=== PATIENT | female | born 1995 | race African-American/Black ===

== ENCOUNTER 2017-03-05 13:19 | Emergency (ER) | payer OTHER, MEDICAID ==
[2017-03-05 13:35] VITALS: BP 137/90; PULSE 102; RESP 18; TEMP 98.1; O2SAT 96
--- NOTE | 2017-03-05 15:03 | EDPHY ---
H & P Time Seen by Provider: 03/05/17 14:44 HPI/ROS: CHIEF COMPLAINT: Possible STD HISTORY OF PRESENT ILLNESS: 21-year-old female presents to the emergency department with concerns about possible sexually transmitted infection. Her current partner tested positive for gonorrhea and Chlamydia and she is here for treatment. She does complain of some vaginal discharge. She also complains of pain with urination more so when the urine hits her skin. Her last menstrual period was 2 weeks ago and she denies . She is sexually active and does not use any form of protection. She has 3 children. she denies back pain. ROS: Denies abdominal pain, back pain, fever, chills Past Medical/Surgical History: negative Social History: single Smoking Status: Current every day smoker Physical Exam: On examination the patient is in no apparent distress. She has no pain with palpation in her abdomen. No CVA tenderness bilaterally. She has ulcerative lesion noted to the hard palate as well as small ulcerative lesions to the lateral aspect of her left tongue. She is talking in full sentences. Neck is supple without lymphadenopathy. Pelvic exam reveals normal external genitalia with numerous ulcerative lesions full to the labia majora and labia minora. They appear to be consistent with genital herpes. Speculum examination not performed. Constitutional: Initial Vital Signs Temperature (C) 36.7 C 03/05/17 13:33 Heart Rate 102 H 03/05/17 13:33 Respiratory Rate 18 03/05/17 13:33 Blood Pressure 137/90 H 03/05/17 13:33 O2 Sat (%) 96 03/05/17 13:33 O2 Delivery Mode Room Air Allergies/Adverse Reactions: No Known Allergies Allergy (Unverified 03/05/17 13:32) Home Medications: Medication Instructions Recorded Doxycycline Hyclate 100 mg PO BID #14 tablet 03/05/17 valACYclovir [Valtrex (*)] 1,000 mg PO BID #14 tab 03/05/17 MDM/Departure - [facility] ED Course/Re-evaluation: 21-year-old female presents to the emergency department concerned about possible sexually transmitted infection. Patient is sexually active and has a current partner who tested positive for both gonorrhea and chlamydia. The patient will be treated with oral doxycycline and 250 mg of ceftriaxone IM. Patient also understands that clinically I think she has genital herpes and will be treated with valacyclovir 1000 mg twice daily for 1 week. While the patient was in the emergency department, apparently she became extremely inpatient and was yelling at the nursing staff. When I went in to talk with the patient, she had already left the emergency department. I spoke with the on-call infectious disease physician who was in the emergency department, Dr. Shanique Cruz today, who recommended ordering the gonorrhea and chlamydia test be urine which she was able to provide. Her urine HCG was negative. Her urinalysis revealed some leukocytes, however no other nitrates or red blood cells noted. the patient left the emergency department prior to treatment. - Depart Disposition: Home, Routine, Self-Care Clinical Impression: Gonorrhea, Chlamydia Genital herpes Qualifiers: Herpes simplex infection site: unspecified Qualified Code(s): A60.00 - Herpesviral infection of urogenital system, unspecified Condition: Good Instructions: Genital Herpes Simplex (ED), Chlamydia (ED), Gonorrhea (ED) Additional Instructions: Valtrex 1000mg every 12 hours for 7 days. Doxycycline 100mg every 12 hours for 7 days. Your given an injection of ceftriaxone in the emergency department. Make sure your partner is appropriately treated. You should talk with primary care provider about using control or other means to prevent if you do not want to become and you continue to be sexually active. You should not have sexual intercourse until you have completed the antibiotics in your infection has completely cleared and you have been cleared by her primary care provider. Prescriptions: Doxycycline Hyclate 100 mg PO BID #14 tablet valACYclovir [Valtrex (*)] 1,000 mg PO BID #14 tab Referrals: [facility],. [Clinic] - As per Instructions
[2017-03-05] MEDS ORDERED: CEFTRIAXONE IM 350 MG/ML SYRINGE IM ONE (15:44)
== END 2017-03-05 16:25 | disposition home or self-care (01) ==
DX: A60.00 Herpesviral infection of urogenital system, unspecified (principal); A54.9 Gonococcal infection, unspecified; A74.9 Chlamydial infection, unspecified; F17.200 Nicotine dependence, unspecified, uncomplicated
CPT/HCPCS: J0696